=== PATIENT | male | born 1945 | race Caucasian/White ===

== ENCOUNTER → 2017-12-13 | Emergency (ER) | payer MEDICARE ==
[~2017-12-13] VITALS: Ht 172.7 cm; Wt 88.0 kg
[~2017-12-13] MED LIST: ACYCLOVIR800 MG PO; ALBUTEROL1.25 MG/3 INH; ALL DAY ALLERGY10 M3 PO; ANUSOL-HC25 MG PR; ASPIR-LOW81 MG PO; BUMETANIDE1 MG PO; DOXYCYCLINE HY100 MG PO; DULERA 100 MCG/13 GM INH; FUROSEMIDE20 MG PO; GLUCOPHAGE XR500 MG PO; HYDROCHLOROTHIA25 MG; IPRAT-ALBUT 0.5-3 ML INH; LISINOPRIL40 MG PO; MOBIC15 MG PO; MUPIROCIN1 GM TOP; NITROGLYCERIN0.4 MG SL; NORCO 5-325 TA1 EACH PO; PREDNISONE20 MG PO; PROTONIX20 MG PO; REGLAN10 MG PO; TOPROL XL100 MG PO; VENTOLIN HFA18 GM INH; VITAMIN D1000 UNIT PO
== END ==
LOC: ED 17:35
DX: K59.00 Constipation, unspecified (principal); K62.89 Other specified diseases of anus and rectum; J44.9 Chronic obstructive pulmonary disease, unspecified; I10 Essential (primary) hypertension; E11.9 Type 2 diabetes mellitus without complications; K21.9 Gastro-esophageal reflux disease without esophagitis; Z87.891 Personal history of nicotine dependence; Z88.8 Allergy status to other drugs, medicaments and biological substances; Z88.0 Allergy status to penicillin; Z88.1 Allergy status to other antibiotic agents; Z79.899 Other long term (current) drug therapy; Z79.82 Long term (current) use of aspirin; Z79.84 Long term (current) use of oral hypoglycemic drugs; Z79.52 Long term (current) use of systemic steroids
CPT/HCPCS: 74022; 99283

== ENCOUNTER 2018-01-30 14:08 | Emergency (ER) | payer MEDICARE ==
[~2018-01-30] VITALS: Ht 172.7 cm; Wt 88.0 kg
[~2018-01-30 14:08] MED LIST changes: -BUMETANIDE1 MG PO; -HYDROCHLOROTHIA25 MG; -REGLAN10 MG PO; -TOPROL XL100 MG PO
[2018-01-30] MEDS ORDERED: HYDROCHLOROTHIA25 MG (14:44)
[2018-01-30] MEDS ORDERED: REGLAN10 MG PO (14:45)
[2018-01-30] MEDS ORDERED: BUMETANIDE1 MG PO (14:48)
[2018-01-30] MEDS ORDERED: TOPROL XL100 MG PO (14:48)
--- NOTE | 2018-01-30 17:24 | EKG ---
[facility] [address] [place], [place] [address] Signed Sinus rhythm with occasional premature ventricular complexes Left axis deviation Low voltage QRS Cannot rule out Anterior infarct , age undetermined Abnormal ECG No previous ECGs available Confirmed by MILAGRO WOLF MD ([id number]) on 01/30/2018 5:24:09 PM Electronically Signed By: MILAGRO WOLF MD 01/30/18 1724 PATIENT NAME: JOSÉHANS Electrocardiogram DATE OF : 45 PHYSICIAN: MILAGRO WOLF MD REPORT #: [id number] REPORT IS CONFIDENTIAL AND NOT TO BE RELEASED WITHOUT AUTHORIZATION
== END 2018-01-30 19:09 | disposition home or self-care (01) ==
LOC: ED 14:08
DX: N17.9 Acute kidney failure, unspecified (principal); I11.0 Hypertensive heart disease with heart failure; I50.9 Heart failure, unspecified; R79.89 Other specified abnormal findings of blood chemistry; E11.9 Type 2 diabetes mellitus without complications; Z87.891 Personal history of nicotine dependence; Z88.1 Allergy status to other antibiotic agents; Z88.0 Allergy status to penicillin; Z88.8 Allergy status to other drugs, medicaments and biological substances; Z79.84 Long term (current) use of oral hypoglycemic drugs; Z79.899 Other long term (current) drug therapy
CPT/HCPCS: 71046; 80053; 83880; 84484; 85025; 93005; 93010; 94640; 99285